=== PATIENT | female | born 2005 | race Caucasian/White ===

== ENCOUNTER 2024-09-04 15:49 | Emergency (ER) | payer BC ==
[~2024-09-04] VITALS: Ht 170.2 cm; Wt 59.0 kg
[2024-09-04 15:51] VITALS: O2SAT 99
[2024-09-04 18:01] LABS: HEMATOCRIT 40.5 % (36.0-48.0); HEMOGLOBIN 12.3 g/dL (12.0-16.0); MEAN CORPUSCULAR HEMOGLOBIN 28.4 pg (28.0-32.0); MEAN CORPUSCULAR HGB CONC 30.5 g/dL (31.0-37.0); MEAN CORPUSCULAR VOLUME 93.2 fL (81.0-99.0); PLATELET 246 x1000/uL (130-400); RED BLOOD CELL COUNT 4.34 mill/uL (4.2-5.4); RED CELL DISTRIBUTION WIDTH 15.5 % (11.6-14.6); WHITE BLOOD COUNT 13.2 x1000/uL (4.5-11.0)
[2024-09-04 18:05] LABS: CHLORIDE 101 mEq/L (98-107); POTASSIUM 4.1 mEq/L (3.5-5.1); SODIUM 135 mEq/L (136-145)
[2024-09-04 18:06] LABS: CALCIUM 9.9 mg/dL (8.7-10.4); CARBON DIOXIDE 18 mEq/L (21-32)
[2024-09-04 18:11] LABS: UREA NITROGEN BLOOD 12 mg/dL (9-23)
[2024-09-04 18:19] LABS: GLUCOSE 405 mg/dL (70-105)
[2024-09-04] MEDS ORDERED: IBUPROFEN 800MG TABLET PO NR (18:30)
[2024-09-04] MEDS: HYDROCODONE/ACETAMINOPHEN 10/325MG TABLET PO NR (19:13)
[2024-09-04] MEDS: KETOROLAC 30MG/ML VIAL IM NR (19:19)
[2024-09-04] MEDS: BLOOD SUGAR DIAGNOSTIC STRIP TEST NR (19:24)
[2024-09-04 20:02] LABS: CLARITY URINE CLEAR (CLEAR); COLOR URINE YELLOW (YELLOW); GLUCOSE URINE 3+ (NEGATIVE); KETONES URINE 4+ (NEGATIVE); LEUKOCYTE ESTERASE URINE NEGATIVE (NEGATIVE); NITRITE URINE NEGATIVE (NEGATIVE); OCCULT BLOOD URINE 3+ (NEGATIVE); PROTEIN URINE NEGATIVE (NEGATIVE); SPECIFIC GRAVITY URINE 1.037 (1.005-1.030); UROBILINOGEN URINE 0.2 E.U./dL (0.2-1.0)
[2024-09-04 20:36] LABS: RBC URINE 25-50 /hpf (0-2); SQUAMOUS EPITHELIAL CELL URINE FEW /lpf (RARE/1+); WBC URINE 0-2 /hpf (0-2)
[2024-09-04 20:37] LABS: BACTERIA URINE 1+
[2024-09-04] MEDS ORDERED: IBUP-2030 MT (20:37)
[2024-09-04] MEDS: LORAZEPAM 1MG TABLET PO ONE (21:06)
[2024-09-04] MEDS: KETOROLAC 30MG/ML VIAL IM ONE (21:06)
[2024-09-04 21:15] VITALS: BP 106/62; PULSE 99; RESP 18; TEMP 37.00296; O2SAT 99
== END 2024-09-04 21:20 | disposition home or self-care (01) ==
LOC: ER 15:49
DX: R10.2 Pelvic and perineal pain (principal); R42 Dizziness and giddiness; N94.6 Dysmenorrhea, unspecified
CPT/HCPCS: 80048; 81003; 81025; 82962; 85027; 36415; 96372; 99283; J1885; Z7610